=== PATIENT | female | born 1970 | race Caucasian/White ===

== ENCOUNTER 2017-08-24 11:33 | Emergency (ER) | payer BC ==
[2017-08-24 12:09] VITALS: BP 99/67
--- NOTE | 2017-08-24 12:32 | UC ---
Back Pain HPI - HPI Summary HPI Summary: 47 y/o WF presents with left lower back pain after a fall on 08/14/17. She tells me that she was cleaning up after taking down the ryan tree. She has hard wood floors and stepped on a rug - the rug went out from underneath her and she landed on her left hip/buttocks. She had immediate pain, but was able to get up and ambulate. The next day she went to [facility] urgent care and was given Terreton for 3 days. She took this very sparingly and had good relief, but the pain persisted. Last night she had numbness going down her left lateral thigh extending to her lateral knee. She denies fever, chills, SOB, chest pain, abdominal pain, n/v/d/c, dysuria, loss of bowel or bladder control. - History of Current Complaint Chief Complaint: UCBackPain Stated Complaint: BACK INJURY PAIN Hx Obtained From: Patient Hx Last Menstrual Period: Mirena Onset/Duration: Sudden Onset Timing: Lasting Days Severity Initially: Moderate Severity Currently: Moderate Pain Intensity: 8 Pain Scale Used: 0-10 Numeric - Allergies/Home Medications Allergies/Adverse Reactions: Allergies Allergy/AdvReac Type Severity Reaction Status Date / Time Aspirin Allergy Anaphylatic Verified 08/24/17 11:59 Shock Ibuprofen Allergy Anaphylatic Verified 08/24/17 11:59 Shock Shellfish Allergy Allergy Anaphylatic Verified 08/24/17 11:59 Shock PMH/Surg Hx/FS Hx/Imm Hx Previously Healthy: Yes Psychological History: Anxiety, Depression Other History Of: Negative For: HIV, Hepatitis B, Hepatitis C, Anticoagulant Therapy - Surgical History Surgical History: Yes Surgery Procedure, Year, and Place: L Knee partial replacement 2012. L Knee surgery 2011. L Knee surgery 2004. Gall bladder removal 2002 - Family History Known Family History: Positive: None, Cardiac Disease Negative: Hypertension, Diabetes - Social History Occupation: Employed Full-time Lives: With Family Alcohol Use: Occasionally Substance Use Type: None Smoking Status (MU): Never Smoked Tobacco - Immunization History Most Recent Influenza Vaccination: never Most Recent Tetanus Shot: UTD Review of Systems Constitutional: Negative Skin: Negative Respiratory: Negative Cardiovascular: Negative Gastrointestinal: Negative Genitourinary: Negative Musculoskeletal: Other: - Left lower back pain Neurological: Numbness - Left lateral leg All Other Systems Reviewed And Are Negative: Yes Physical Exam Triage Information Reviewed: Yes Appearance: Well-Appearing, No Pain Distress, Well-Nourished Vital Signs: Initial Vital Signs Temp 98.7 F 08/24/17 12:01 Pulse 106 08/24/17 12:01 Resp 20 08/24/17 12:01 BP 99/67 08/24/17 12:01 Pulse Ox 98 08/24/17 12:01 Vital Signs Reviewed: Yes Respiratory: Positive: Chest non-tender, Lungs clear, Normal breath sounds Cardiovascular: Positive: RRR, No Murmur, Pulses Normal Musculoskeletal: Positive: Strength Intact - B/L LEs including dorsiflexion and plantar flexion, ROM Intact - B/L LEs, No Edema, Other: - SLR positive on left. EMMY positive for lower back pain on left. TTP over upper left buttock and piriformis. No ecchymosis or erythema. Neurological: Positive: Alert, Other: - L3-S1 sensations intact B/L LEs. Patella and ankle reflexes intact bilaterally. Psychological: Positive: Age Appropriate Behavior Skin: Negative: rashes Back Pain Course/Dx - Course Course Of Treatment: XR hip: LIMITED SINGLE FRONTAL PROJECTION OF THE LEFT HIP. NO ACUTE OSSEOUS INJURY. Lumbar: 1. FACET OSTEOARTHRITIS WITH MILD DEGENERATIVE DISC DISEASE. 2. NO ACUTE OSSEOUS INJURY. I suspect she has a muscle contusion and/or spasm. She is currently scheduled with physical therapy for this pain and will keep that appointment. 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 Will also try flexeril at bedtime and lidocaine patch as needed. I advised her that if her numbness worsens or persists - she should follow up with her PCP for further eval. - Differential Dx/Diagnosis Differential Diagnosis/HQI/PQRI: Cauda Equina Syndrome, Fracture, Herniated Disc , Strain, Sprain Provider Diagnoses: Low back spasm. Fall Discharge - Discharge Plan Condition: Stable Disposition: HOME Prescriptions: Cyclobenzaprine HCl [Flexeril 5 mg (NF)] 5 mg PO BEDTIME PRN #10 tab PRN Reason: Pain HYDROcodone/ACETAMIN 5-325 MG* [Terreton 5-325 TAB*] 1 tab PO BID PRN #6 tab MDD 2 PRN Reason: Pain Lidocaine 5 % TOPICAL DAILY PRN #14 pad PRN Reason: Pain Patient Education Materials: Muscle Spasm (ED), Lower Back Exercises (ED) Referrals: Denisa Booth MD [Primary Care Provider] - Additional Instructions: If you develop a fever, shortness of breath, chest pain, new or worsening symptoms - please call your PCP or go to the ED. 1) If your symptoms worsen or do not start to improve within 1 week - please schedule a follow up appointment with your PCP.
--- NOTE | 2017-08-24 13:23 | RAD ---
HISTORY: Left hip pain, fall, subacute trauma COMPARISONS: None VIEWS: 1, single frontal view of the left hip FINDINGS: BONE DENSITY: Normal. BONES: There is no displaced fracture. JOINTS: There is no arthropathy. ALIGNMENT: There is no dislocation. SOFT TISSUES: Unremarkable. OTHER FINDINGS: None. IMPRESSION: LIMITED SINGLE FRONTAL PROJECTION OF THE LEFT HIP. NO ACUTE OSSEOUS INJURY. IF SYMPTOMS PERSIST, RECOMMEND REPEAT IMAGING
--- NOTE | 2017-08-24 13:26 | RAD ---
HISTORY: Fall, subacute injury, low back pain COMPARISONS: June 15, 2004 VIEWS: 5 , Frontal, lateral, coned-down lateral sacral, and bilateral oblique views of the lumbar spine. FINDINGS: ALIGNMENT: The alignment is normal. VERTEBRAL BODIES: The vertebral body heights are normal. The interpedicular distances are normal. There is mild anterolateral marginal osteophyte formation. Essentially noted is a small dysraphic defect of S1. JOINTS: There is facet osteoarthritis most pronounced at L4-L5 and L5-S1 INTERVERTEBRAL DISCS: There is mild diffuse loss of intervertebral disc height. SOFT TISSUE: Unremarkable. OTHER: The pelvis is unremarkable. The lung bases are clear. An IUD is noted. IMPRESSION: 1. FACET OSTEOARTHRITIS WITH MILD DEGENERATIVE DISC DISEASE. 2. NO ACUTE OSSEOUS INJURY.
== END 2017-08-24 13:45 | disposition home or self-care (01) ==
LOC: UCEAST 11:33
DX: M62.830 Muscle spasm of back (principal); Z88.6 Allergy status to analgesic agent; Z88.8 Allergy status to other drugs, medicaments and biological substances; Z91.013 Allergy to seafood; W18.31XA Fall on same level due to stepping on an object, initial encounter; Y93.E9 Activity, other interior property and clothing maintenance; Y92.9 Unspecified place or not applicable
CPT/HCPCS: 72110; 99212; G0463

== ENCOUNTER 2018-09-12 19:31 | Observation (INO) | payer BC ==
--- NOTE | 2018-09-12 20:07 | ED ---
Altered Mental Status - HPI Summary HPI Summary: Patient is a 48 y/o F presenting to ED with complaints of AMS. Provider in room at 194. In the room, patient alert and oriented x2. When asked for month, she states September, but she corrects herself a few seconds later. Sx onset at around 1814, states that the patient stubbed her toe, patient's daughter asked to look at it. As she was doing rubbing the toe, the patient asked daughter, "What color you painting my toes?" Later on, states that patient nonsensically said that she needed to get the pictures of the children organized. Patient randomly asked if the doctor was at the house. Patient asked if the doctor had come to the house to spanish moss picker baby clothes. In kitchen later on, states that patient had slight slurring of speech. She notes that she started Lyrica a week or two ago. In the room, states that patient is speaking slowly and that the patient has to try hard not to mis-speak. "I think it (speech) gets a little slurry" per . She is concerned that Sx are a result of medications. notes that while patient was walking down the stairs, she almost fell. No chest pain, no SOB, no DALLAS, no dizziness reported. Patient suddenly got tired, went to sleep. called pharmacy about Sx as he wanted to ask if Sx could be a result of medications. It was advised patient come to ED. While in the car, she states, "I think I'm losing my mind, I thought that we were going to the laser show at [place]. " She then thought that they were going to visit a friend's house. notes that patient has been under a lot of stress recently. Patient medications include Lyrica 50 mg BID, oxycodone 5/325, vitamin D3, cyclobenazpine 5 mg as needed, which she took today short-acting adderall 20 mg at 1300, extended release adderall 30 mg in morning, duloxetine 60 mg daily, synthroid 150 mcg. Hx of chronic back pain. PSHx of knee replacement, cholecystectomy. FMHx of stroke in father. On triage, pain is denied, nothing is noted to aggravate/ alleviate Sx. Home medications and allergies are reviewed. Allergies Allergy/AdvReac Type Severity Reaction Status Date / Time aspirin Allergy Anaphylatic Verified 09/05/18 15:30 Shock ibuprofen Allergy Anaphylatic Verified 09/05/18 15:30 Shock shellfish derived Allergy Anaphylatic Verified 09/05/18 15:30 Shock - History Of Current Complaint Chief Complaint: EDGeneral Stated Complaint: CONFUSED/WEAKNESS Hx Obtained From: Patient Last Known Well Date: 18:15 Onset/Duration: Still Present Timing: Lasting Hours - onset 1615 Severity Initially: Mild Severity Currently: Mild Character: Confusion Aggravating Factor(s): Nothing Alleviating Factor(s): Nothing Associated Signs And Symptoms: Negative: Headache - Allergies/Home Medications Allergies/Adverse Reactions: Allergies Allergy/AdvReac Type Severity Reaction Status Date / Time aspirin Allergy Anaphylatic Verified 09/05/18 15:30 Shock ibuprofen Allergy Anaphylatic Verified 09/05/18 15:30 Shock shellfish derived Allergy Anaphylatic Verified 09/05/18 15:30 Shock PMH/Surg Hx/FS Hx/Imm Hx Previously Healthy: No Endocrine/Hematology History: Reports: Hx Thyroid Disease Denies: Hx Anticoagulant Therapy, Hx Diabetes Cardiovascular History: Denies: Hx Congestive Heart Failure, Hx Deep Vein Thrombosis, Hx Hypercholesterolemia, Hx Hypertension, Hx Myocardial Infarction, Hx Pacemaker/ ICD, Hx Peripheral Vascular Disease Respiratory History: Denies: Hx Asthma, Hx Chronic Obstructive Pulmonary Disease (COPD), Hx Lung Cancer, Hx Pneumonia, Hx Pulmonary Embolism GI History: Denies: Hx Gall Bladder Disease, Hx Gastrointestinal Bleed, Hx Ulcer, Hx Urosepsis History: Denies: Hx Kidney Stones, Hx Renal Disease Musculoskeletal History: Reports: Hx Arthritis, Hx Back Problems - chronic back pain Denies: Hx Rheumatoid Arthritis, Hx Osteoporosis Sensory History: Denies: Hx Cataracts, Hx Contacts or Glasses, Hx Glaucoma, Hx Hearing Aid Opthamlomology History: Denies: Hx Cataracts, Hx Contacts or Glasses, Hx Glaucoma Neurological History: Denies: Hx Dementia, Hx Headaches, Hx Migraine, Hx Seizures, Hx Transient Ischemic Attacks (TIA) Psychiatric History: Reports: Hx Anxiety, Hx Attention Deficit Hyperactivity Disorder, Hx Depression Denies: Hx Eating Disorder, Hx Panic Disorder, Hx Schizophrenia, Hx Bipolar Disorder, Hx of Violent Episodes Against Others - Surgical History Surgery Procedure, Year, and Place: L Knee partial replacement 2012. L Knee surgery 2011. L Knee surgery 2004. Gall bladder removal 2002 Infectious Disease History: No Infectious Disease History: Denies: Hx Clostridium Difficile, Hx Hepatitis, Hx Human Immunodeficiency Virus (HIV), Hx of Known/Suspected MRSA, Hx Shingles, Hx Tuberculosis, Hx Known/ Suspected VRE, Hx Known/Suspected VRSA, History Other Infectious Disease, Traveled Outside the [place] in Last 30 Days - Family History Known Family History: Positive: Cardiac Disease, Other - FMHx of stroke Negative: Hypertension, Diabetes - Social History Occupation: Employed Full-time Lives: With Family Alcohol Use: None Substance Use Type: Reports: None Smoking Status (MU): Never Smoked Tobacco Review of Systems Negative: Fever Eyes: Negative ENT: Negative Negative: Chest Pain Negative: Shortness Of Breath Gastrointestinal: Negative Positive: no symptoms reported Musculoskeletal: Negative Skin: Negative Neurological: Other - NEGATIVE - DIZZINESS; POSITIVE - AMS, CONFUSION Positive: Slurred Speech. Negative: Headache Psychological: Other - confused, but aware she is confused, cooperative, calm All Other Systems Reviewed And Are Negative: Yes Physical Exam - Summary Physical Exam Summary: Appearance: Well-appearing, no pain distress, well-nourished Skin: Warm, color reflects adequate perfusion, dry Head: Normal Head/Face inspection, atraumatic Eyes: Conjunctiva clear, ENT: Normal inspection Neck: Supple, no nodes, no JVD Respiratory: Lungs clear, normal breath sounds, no respiratory distress Cardio: RRR, No murmur, pulses normal, brisk capillary refill Abdomen: Soft, nontender Bowel sounds: Present Musculoskeletal: Strength Intact/ROM intact, no calf tenderness, no edema. Psychological: Normal Neuro: A&O x2, patient gets month wrong, CN II-XII intact, motor function 5/5, sensation intact, cerebellar normal; slurred speech NIH 2, GCS 15 Triage Information Reviewed: Yes Vital Signs On Initial Exam: Initial Vitals Temp Pulse Resp BP Pulse Ox 98.2 F 92 18 102/72 100 09/12/18 19:38 09/12/18 19:38 09/12/18 19:38 09/12/18 19:38 09/12/18 19:38 Vital Signs Reviewed: Yes Diagnostics - Vital Signs Vital Signs Temp Pulse Resp BP Pulse Ox 09/12/18 19:38 98.2 F 92 18 102/72 100 - Laboratory Result Diagrams: 09/12/18 20:57 09/12/18 20:57 Lab Statement: Any lab studies that have been ordered have been reviewed, and results considered in the medical decision making process. - Radiology CXR Radiology Interpretation Completed By: ED Physician Summary of Radiographic Findings: NAD, pending official report - CT brain ct CT Interpretation Completed By: Radiologist Summary of CT Findings: IMPRESSION: No acute intracranial abnormality. This report was reviewed by ED physician. - EKG 2135 Cardiac Rate: NL - rate of 80 BPM EKG Rhythm: Sinus Rhythm - rate of [address] Segment: Non-Specific Ectopy: None EKG Comparison: Other - no priors to compare Summary of EKG Findings: EKG showed sinus rhythm with rate of 80 BPM, nml AVIVCT , nml QTc, nml axis. No ectopy, non-specific ST. No acute changes. No prior EKGs to compare with. National Institutes Of Health - NIH Scale Level of Consciousness: Alert/Keenly Responsive Ask Patient the Month and His/Her Age: [age] Correct/Not Aphasic Ask Pt to Open/Close Eyes and Grease Packer/Release Non-Paretic Hand: Both Correctly Best Gaze (Only Horizontal Eye Movement): Normal Visual Field Testing: No Visual Loss Facial Paresis-Pt to Smile & Close Eyes or Grimace Symmetry: Normal/Symmetrical Motor Function - Right Arm: No Drift-Holds 10 Seconds Motor Function - Left Arm: No Drift-Holds 10 Seconds Motor Function - Right Leg: No Drift-Holds 10 Seconds Motor Function - Left Leg: No Drift-Holds 10 Seconds Limb Ataxia-Must be out of Proportion to Weakness Present: Absent Sensory (Use Pinprick to Test Arms/Legs/Trunk/Face): Normal Best Language (Describe Picture, Name Items): No Aphasia Dysarthria (Read Several Words): Slurs Some Words Extinction and Inattention: No Abnormality Total Score: 2 Re-Evaluation - Re-Evaluation First Eval Re-Evaluation Time: 20:30 Comment: Telestroke was set up in patient's room, patient gives HPI and medications to Dr. Galeano. She states that she only noted that her statements were non-sensical after the fact. Patient describes Sx as intermittent. She still feels on-guard when it comes to answering questions. Hx of depression, anxiety, ADD. In room, vitals are pulse 88, BP 121/77. No prior episodes of such Sx. notes that patient appears tired currently. reports that episode lasted around one hour. Patient had not been asking repeated questions. NIH in room was [address] Galeano. Admission was advised by Dr. Galeano, patient is agreeable. He recommends MRI, clopidogrel 75 mg, ECHO with bubble study. No ASA due to allergy. No TPA. Altered Mental Statu Course/Dx - Course Course Of Treatment: Patient is a 48 y/o F presenting to ED with complaints of AMS. Provider in room at 194. In the room, patient alert and oriented x2. When asked for month, she states September, but she corrects herself a few seconds later. Sx onset at around 1814, states that the patient stubbed her toe , patient's daughter asked to look at it. As she was doing rubbing the toe, the patient asked daughter, "What color you painting my toes?" Later on, states that patient nonsensically said that she needed to get the pictures of the children organized. Patient randomly asked if the doctor was at the house. Patient asked if the doctor had come to the house to spanish moss picker baby clothes. In kitchen later on, states that patient had slight slurring of speech. She notes that she started Lyrica a week or two ago. In the room, states that patient is speaking slowly and that the patient has to try hard not to mis-speak. "I think it (speech) gets a little slurry" per . She is concerned that Sx are a result of medications. notes that while patient was walking down the stairs, she almost fell. No chest pain, no SOB, no DALLAS, no dizziness reported. Patient suddenly got tired, went to sleep. called pharmacy about Sx as he wanted to ask if Sx could be a result of medications. It was advised patient come to ED. While in the car, she states, "I think I'm losing my mind, I thought that we were going to the laser show at [place]. " She then thought that they were going to visit a friend's house. notes that patient has been under a lot of stress recently. Patient medications include Lyrica 50 mg BID, oxycodone 5/325, vitamin D3, cyclobenazpine 5 mg as needed, which she took today short-acting adderall 20 mg at 1300, extended release adderall 30 mg in morning, duloxetine 60 mg daily, synthroid 150 mcg. Hx of chronic back pain. PSHx of knee replacement, cholecystectomy. FMHx of stroke in father. On physical exam, A&O x2, patient gets month wrong, CN II- XII intact, motor function 5/5, sensation intact, cerebellar normal; NIH 2, GCS 15. 2024 - Dr. Galeano was reached, patient's case was discussed, telestroke will be set up. Telestroke was set up in patient's room, patient gives HPI and medications to Dr. Galeano. She states that she only noted that her statements were non-sensical after the fact. Patient describes Sx as intermittent. She still feels on-guard when it comes to answering questions. Hx of depression, anxiety. In room, vitals are pulse 88, BP 121/77. No prior episodes of such Sx. notes that patient appears tired currently. reports that episode lasted around one hour. Patient had not been asking repeated questions. NIH in room was 1. Admission was advised by Dr. Galeano, patient is agreeable. He recommends MRI, clopidogrel 75 mg. 2044 - Dr. Geiger communicated results of Brain CT. Brain CT IMPRESSION: No acute intracranial abnormality. CXR: NAD. EKG showed sinus rhythm with rate of 80 BPM, nml AVIVCT, nml QTc, nml axis. No ectopy, non-specific ST. No acute changes. No prior EKGs to compare with. Pt with acute neurologic event with LKW less than 6 hrs, NIH one on telestroke. No TPA. Diff dx: TIA, toxic encephalopathy due to medication, polypharmacy with medication side effects. 2055 - Patient's case was discussed with Dr. Dougherty, Dr. Dougherty accepts for admission. - Diagnoses Differential Diagnosis/HQI/PQRI: CVA, Medication Reaction, Metabolic Disorder, Seizure, TIA Provider Diagnoses: Altered mental state, Neurological deficit present During the Visit The Following Alert/Code Occurred: Code Spencer - 2013 called - Provider Notifications Discussed Care Of Patient With: Oj Galeano Time Discussed With Above Provider: 20:25 Instructed by Provider To: Other - 2024 - Dr. Galeano was reached, patient's case was discussed, telestroke will be set up. 2044 - Dr. Geiger communicated results of Brain CT. 2055 - Patient's case was discussed with Dr. Dougherty, Dr. Dougherty accepts for admission. - Critical Care Time Critical Care Time: 30-74 min - 30 minutes Discharge - Sign-Out/Discharge Documenting (check all that apply): Patient Departure - admit All imaging exams completed and their final reports reviewed: Yes - Discharge Plan Condition: Stable Disposition: ADMITTED TO [facility] - Billing Disposition and Condition Condition: STABLE Disposition: Admitted to [facility] - Attestation Statements Document Initiated by Kassiibe: Yes Documenting Scribe: JAMAR WALLS Provider For Whom Toñoe is Documenting (Include Credential): ELIZABETH ELIZALDE MD Scribe Attestation: JAMAR Archer , scribed for ELIZABETH ELIZALDE MD on 09/13/18 at 2228. Scribe Documentation Reviewed: Yes Provider Attestation: The documentation as recorded by the JAMAR morales accurately reflects the service I personally performed and the decisions made by me, ELIZABETH ELIZALDE MD Status of Scribe Document: Viewed
[2018-09-12] MEDS ORDERED: NS 0.9% 1000 ML* 1,000 ML IV ONE (20:14)
[2018-09-12 21:07] LABS: ABS Basophils 0.1 10^3/ul (0-0.2); ABS Eosinophils 0.2 10^3/ul (0-0.6); ABS Lymphocytes 2.6 10^3/ul (1.0-4.8); ABS Monocytes 0.5 10^3/ul (0-0.8); ABS Neutrophils 2.2 10^3/ul (1.5-7.7); ABS Nucleated RBC 0 10^3/ul; Eosinophil % 3.1 %; Hematocrit 38 % (35-47); Hemoglobin 12.9 g/dl (12.0-16.0); Lymphocyte % 46.5 %; Mean Corpuscular HGB Conc 34 g/dl (31-36); Mean Corpuscular Hemoglobin 31 pg (27-31); Mean Corpuscular Volume 92 fL (80-97); Mean Platelet Volume 8.6 fL (7.4-10.4); Nucleated Red Blood Cells % 0.1; Platelet Count 250 10^3/ul (150-450); Red Blood Count 4.14 10^6/ul (4.00-5.40); Red Cell Distribution Width 13 % (10.5-15); White Blood Count 5.6 10^3/ul (3.5-10.8)
[2018-09-12 21:19] LABS: Activated Partial Thrombo Time 27.9 seconds (26.0-36.3)
[2018-09-12] MEDS ORDERED: Cyclobenzaprine TAB* 10 MG PO PRN ×2 (21:23)
[2018-09-12] MEDS ORDERED: Lidocaine PATCH 5%* 1 PATCH TRANSDERM PRN (21:23)
[2018-09-12] MEDS ORDERED: Acetaminophen TAB* 325 MG PO PRN (21:28)
[2018-09-12] MEDS ORDERED: Clopidogrel TAB* 75 MG PO ONE (21:30)
[2018-09-12 21:31] LABS: HCG Pregnancy < 0.60 mIU/mL
--- NOTE | 2018-09-12 21:32 | ADMNOTE ---
Subjective Date of Service: 09/12/18 - History and Physical Interval History: History and Physical. Chief Complaint: confusion History of presenting illness: This is a 48 year old Female with history of chronic low back pain, depression, anxiety, hypothyroidism, who presents to the emergency room because of confusion. This started at about 6:15 PM. She was making dinner, then she stubbed her toe, and shortly thereafter she became very confused. Her witnessed this. Her told her we will take you to the hospital, and they started driving. During the drive she though she was going a family member's house. Few minutes later, she thought they were going to [place]. She takes numerous psychiatric medications, as well as pain medications. One change in his medications list is start of Lyrica about a week ago. No prior episodes, no slurring of speech. Did not have any focal weakness or numbness. In the Emergency: Code [place] (stroke) was called. CT head was done, was negative. Teleneurologist was called. Past medical history: Chronic low back pain Depression Anxiety Unspecified Hypothyroidism Past surgeries: Knee replacement Cholecystectomy Social History: Lives at home, with her . Does not smoke, no alcohol use. She is a teacher Family history: Mother: cancer Father: heart condition. Review of Systems - Measurements Intake and Output: Intake and Output Last 24 Hours 09/10/18 09/11/18 09/12/18 09/13/18 06:59 06:59 06:59 06:59 Weight 185 lb - Review of Systems Constitutional Symptoms: Negative: Weight Loss, Fatigue, Fever, Unexplained Falls Dermatology: Negative: Rash, Skin Lesions HEENT: Negative: Change in Hearing, Vertigo Eyes: Negative: Change in Vision, Eye Pain, Glaucoma Thyroid: Positive: Primary Hypothyroidism Negative: Cold Intolerance, Frequent Defecation, Palpitations Pulmonary: Negative: Cough, Sputum, Respiratory Distress, Shortness of Breath Cardiology: Negative: Chest Pain, Palpitations, Syncope Gastroenterology: Negative: Abdominal Pain, Nausea, Vomiting, Constipation, Diarrhea Genital - Urinary: Negative: Dysuria, Hematuria Genitourinay - Female: Negative: Vaginal Discharge Musculoskeletal: Positive: Low Back Pain Negative: Arthritis Neurology: Positive: Other - See HPI Negative: Headache, Dizziness Psychiatry: Positive: Depression, Anxiety Objective Active Medications: Acetaminophen (Tylenol Tab*) 650 mg PO Q6H PRN PRN Reason: FEVER/PAIN Amphetamine/Dextroamphetamine (Adderal Xr (Nf)) 30 mg PO DAILY [facility] Amphetamine/Dextroamphetamine (Adderal Xr (Nf)) 20 mg PO DAILY [facility] Cholecalciferol (Vitamin D3 Cap/Tab (Nf)) cap PO DAILY [facility] Clopidogrel Bisulfate (Plavix Tab*) 75 mg PO ED ONCE ONE Stop: 09/12/18 21:31 Cyclobenzaprine HCl (Cyclobenzaprine (Nf)) 5 mg PO DAILY PRN PRN Reason: SPASMS Cyclobenzaprine HCl (Flexeril Tab*) 10 mg PO TID PRN PRN Reason: SPASMS Duloxetine HCl (Cymbalta Cap*) 60 mg PO DAILY [facility] Enoxaparin Sodium (Lovenox(*)) 40 mg SUBCUT Q24H [facility] Haloperidol (Haldol Tab*) 1 mg PO BEDTIME [facility] Lidocaine (Lidoderm 5% Patch*) patch TRANSDERM DAILY PRN PRN Reason: PAIN Non-Formulary Medication (Levoxyl ) 150 meq PO DAILY [facility] Non-Formulary Medication (Topiramate [Topiramate Er 100 Mg Cap]) 100 mg PO DAILY [facility] Non-Formulary Medication (Topiramate [Topiramate Er 50 Mg Cap]) 50 mg PO DAILY [facility] Quetiapine Fumarate (Seroquel Xr Tab*) 50 mg PO BEDTIME [facility] Vital Signs - 8 hr 09/12/18 19:38 Temperature 98.2 F Pulse Rate 92 Respiratory 18 Rate Blood Pressure 102/72 (mmHg) O2 Sat by Pulse 100 Oximetry Oxygen Devices in Use Now: None Appearance: Well developed well nourished female lying in bed, not in distress Eyes: PERRLA, - - No nystagmus. Ears/Nose/Mouth/Throat: Mucous Membranes Moist, - - no nystagmus, no tongue bite Neck: Trachea Midline, No Thyroid Enlargement, Masses Respiratory: Symmetrical Chest Expansion and Respiratory Effort, Clear to Auscultation Cardiovascular: NL Sounds; No Murmurs; No JVD, RRR Abdominal: NL Sounds; No Tenderness; No Distention, No Hepatosplenomegaly Extremities: No Edema, No Clubbing, Cyanosis Skin: No Rash or Ulcers Neurological: Alert and Oriented x 3, - - tongue midline, speech clear/coherent , no nystagmus, symetric smile, motor 5/5 all 4 extremities, no dysmetria, no dysdiadokinesia Result Diagrams: 09/12/18 20:57 09/12/18 20:57 Diagnostic Imaging: EXAM: CT Head Without Contrast EXAM DATE/TIME: 09/12/2018 8:22 PM CLINICAL HISTORY: 48 years old, female; Signs and symptoms; Altered mental status/memory loss; Additional info: Neurological changes/code romero TECHNIQUE: Axial computed tomography images of the head/brain without contrast. All CT scans at this facility use at least one of these dose optimization techniques: automated exposure control; mA and/or kV adjustment per patient size (includes targeted exams where dose is matched to clinical indication); or iterative reconstruction. COMPARISON: No relevant prior studies available. FINDINGS: Brain: Normal. No hemorrhage. No significant white matter disease. No edema. Ventricles: Normal. No ventriculomegaly. Bones/joints: Normal. No acute fracture. Sinuses: Normal as visualized. No acute sinusitis. Mastoid air cells: Normal as visualized. No mastoid effusion. Soft tissues: Normal. IMPRESSION: No acute intracranial abnormality. MR Head Without Contrast EXAM DATE/TIME: 09/12/2018 9:51 PM CLINICAL HISTORY: 48 years old, female; Signs and symptoms; Altered mental status/memory loss; Confusion or disorientation; Patient HX: Around 1830 patient appeared confused, repeating questions and not realizing what she was talking about with her ; Additional info: TIA rule out TECHNIQUE: MR of the head without contrast. COMPARISON: BRAIN WO CT BRAIN WO 09/12/2018 8:21 PM FINDINGS: Brain: Normal. No hemorrhage. No significant white matter disease. No edema. No acute infarct. Ventricles: Normal. No ventriculomegaly. Bones/joints: Unremarkable. Soft tissues: Normal. Sinuses: Normal as visualized. No acute sinusitis. Mastoid air cells: Normal as visualized. No mastoid effusion. Orbits: Unremarkable. IMPRESSION: No acute findings. EKG Data: EKG: sinus rhythm Assess/Plan/Problems-Billing Assessment: - Patient Problems (1) Confusion Current Visit: Yes Status: Acute Code(s): R41.0 - DISORIENTATION, UNSPECIFIED SNOMED Code(s): 355980131 Comment: Likely polypharmacy. Unlikely stroke or TIA. Allergic to aspirin, one dose plavix given. CT head negative, MRI is negative Ordered ECHO, carotid LDL was 98 recently, neuro consult Likely polypharmacy: hold lyrica, will monitor. (2) Hypothyroid Current Visit: Yes Status: Acute Code(s): E03.9 - HYPOTHYROIDISM, UNSPECIFIED SNOMED Code(s): 08920246 Comment: continue levoxyl. (3) Psychiatric illness Current Visit: Yes Status: Acute Code(s): F99 - MENTAL DISORDER, NOT OTHERWISE SPECIFIED SNOMED Code(s): 15601202 Comment: history of depression/anxiety: continue home medicaitons, holding home dose lyrica and klonopin for now due to confusion. Status and Disposition: Plan of care discussed with patient and at bedside Additional management as the hospital course progresses.
[2018-09-12 21:41] LABS: ALT 14 U/L (7-52); AST 15 U/L (13-39); Albumin/Globulin Ratio 1.5 (1-3); Alkaline Phosphatase 59 U/L (34-104); Anion Gap 4 mmol/L (2-11); BUN/Creatinine Ratio 18.6 (8-20); Blood Urea Nitrogen 18 mg/dL (6-24); CO2 Carbon Dioxide 27 mmol/L (22-32); Calcium 9.1 mg/dL (8.6-10.3); Chloride 109 mmol/L (101-111); Cholesterol 167 mg/dL; EGFR African American 74.8 (>60); EGFR Non-African American 61.8 (>60); Globulin 2.6 g/dL (2-4); Glucose 96 mg/dL (70-100); LDL Cholesterol 98 mg/dL; Potassium 3.8 mmol/L (3.5-5.0); Sodium 140 mmol/L (135-145); Total Protein 6.6 g/dL (6.4-8.9); Triglycerides 113 mg/dL
[2018-09-12] MEDS ORDERED: Enoxaparin(*) 40 MG/0.4 ML SYR SUBCUT SCH (22:00)
[2018-09-12 22:16] LABS: Acetaminophen < 15 mcg/mL; Alcohol < 10 mg/dL (<10); Salicylate < 2.50 mg/dL (<30)
[2018-09-13] MEDS ORDERED: Levothyroxine TAB* 150 MCG TAB PO SCH (06:00)
[2018-09-13 08:20] LABS: Barbiturates Urine Screen None Detected (None Detect); Benzodiazepine Urine Screen None Detected (None Detect); Urine Cannabinoids Screen None Detected (None Detect)
[2018-09-13] MEDS ORDERED: Cholecalciferol TAB* 1000 UNITS PO SCH (09:00)
[2018-09-13] MEDS ORDERED: DULoxetine DR CAP* 60 MG CAP.DR PO SCH (09:00)
[2018-09-13] MEDS ORDERED: CMCS: Amphetamine/Dextroamph ER(NF) 10 MG CAP.ER PO SCH ×2 (09:00→13:00)
[2018-09-13] MEDS ORDERED: TOPIRAMATE 100 MG PO SCH (09:00)
[2018-09-13] MEDS ORDERED: TOPIRAMATE 50 MG PO SCH (09:00)
[2018-09-13] MEDS: Lactulose* 15 ML UDC PO SCH ×2 (09:23→13:38)
[2018-09-13 12:22] LABS: TSH (Thyroid Stimulating Horm) 0.17 mcIU/mL (0.34-5.60)
[2018-09-13 12:24] LABS: Free T4 0.85 ng/dL (0.61-1.12)
--- NOTE | 2018-09-13 14:07 | CONS ---
NEUROLOGY CONSULTATION NOTE: DATE OF CONSULT: 09/13/18 CONSULTING PROVIDER: Dr. Caitlyn Dougherty. REASON FOR CONSULT: Episode of confusion. CHIEF COMPLAINT: Transient episodes of disorientation and confusion. HISTORY OF PRESENT ILLNESS: Mrs. Zahra Pinto is a pleasant 48-year-old right - handed female who has history of depression, anxiety, attention deficit disorder, bipolar disorder, chronic low back pain, hypothyroidism, who presented to [facility] yesterday due to increased confusion. The symptoms completely resolved when she arrived to the emergency room. The history was mostly obtained by her who is at bedside. Apparently, the patient was in normal state of health throughout the day yesterday. 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 She came back from work feeling tired. She asked her daughter if she had any bruising around her toe as she stubbed her toe on a nearby furniture earlier yesterday. While her daughter was looking at her toe, she asked her if she was going to paint her toenails. This occurred at approximately 6:15 p.m. Her daughter stated that no, she was just checking her toes and did not know that she was supposed to paint her toes. The patient then got up and was telling her that she needs to organize the pictures that she left in the kitchen table. However, there were no pictures in the kitchen table that required any organization. She then felt exhausted and said she was going to bed. Approximately 1 hour later at 7 p.m., the patient's spouse went to check up on her and she appeared confused. She was slurring her words. He decided that they should go to the hospital. In route to the hospital, the patient asked her if she was losing her mind. She questions if he contacted the hospital and asked them if it was a good time for them to go in. He explained that this is not typically done when going to the ER and it is not necessary. When she arrived to the ER, the patient was felt to have mild slurred speech. Code romero was activated. There was no neurological deficits other than mild slurred speech. She had a CT of the head that was unremarkable. Then, she had an MRI of the brain without contrast that did not show any acute intracranial abnormality. She had a carotid Doppler that showed no definite carotid artery disease. She is currently undergoing a transthoracic echo. The patient had the following laboratory values: WBC 5.6, hemoglobin of 12, hematocrit of 38, platelet count of 250. INR of 1. Sodium 140. Potassium of 3.8, chloride of 109, BUN of 18, creatinine of 0.97. Lactic acid 0.4. Ammonia of 66. She had a urinalysis that was positive for urine amphetamine. The patient is taking Adderall. The patient stated that she took 30 mg of Flexeril in the morning and she felt some stiffness. She does not take Haldol. She does not take Topamax for the past 2 weeks. She stopped taking Topamax because she did not feel well and was not losing weight with the medication. She was recently started on Lyrica less than 1 week ago and she takes 50 mg twice daily for back pain. The patient takes Klonopin 0.5 mg as needed and has not taken any for the last 2 weeks. She takes Adderall 30 mg in the morning and 20 mg at night. She rarely takes Flexeril, only uses it maybe once every 2 weeks. PAST MEDICAL HISTORY: Chronic low back pain, low cholesterol level, hypothyroidism, cholecystectomy, knee replacement, bipolar disorder, major depressive disorder, anxiety. The patient sees Dr. Bruno for psychiatric care. MEDICATIONS: 1. Duloxetine 60 mg p.o. daily. 2. Adderall 30 mg in the morning and 20 mg at night. 3. Vitamin D supplement. She is not taking Topamax or Haldol, please remove that off her home medication list. 4. Cyclobenzaprine 10 mg p.o. t.i.d. as needed. 5. Clonazepam 0.5 mg p.o. t.i.d. p.r.n. Last dose was 2 weeks ago. 6. Quetiapine 50 mg p.o. at bedtime. 7. Acetaminophen 1000 mg p.o. every 6 hours as needed. 8. Pregabalin 50 mg p.o. b.i.d. that was just recently started 1 week ago. ALLERGIES: ASPIRIN, SHELLFISH, IBUPROFEN. FAMILY HISTORY: There is no family history of stroke or seizures. SOCIAL HISTORY: The patient is . She has 1 child. She is a schoolteacher. She denied any tobacco or alcohol use. She is happily . REVIEW OF SYSTEMS: A 14-point review of systems was obtained and otherwise negative, except for what was mentioned in the HPI. PHYSICAL EXAMINATION: Vitals: Temperature of 97.9, pulse of 68, respiratory rate of 14, oxygen saturation of 100, and blood pressure of 120/72. General: Well- nourished, well-developed female in no acute distress. She is overweight. Head: Atraumatic and normocephalic without any obvious abnormalities. Eyes: Conjunctivae/corneas are clear. Neck is supple and symmetrical with no carotid bruits. No lymphadenopathy. Lungs are clear to auscultation bilaterally. Cardiovascular: Regular rate and rhythm, with normal S1, S2. Extremities: Normal range of motion with no cyanosis. Skin: No skin lesions or laceration. Psych: Affect is broad and normal mood, easy to establish rapport. Initially, the patient was agitated and not impressed with the examiner given that I informed her that most of these symptoms that she is having are likely side effects to the medication she is taking; however, later on in the history the patient was open and very appreciative of the recommendation and was interested in further care and to further wean off some of the medications. Neurological Examination: Mental Status: Awake, alert, oriented to person; place; time, general circumstance. Speech and language including expression, naming, and repetition were assessed and found to be normal. Cranial Nerves: Normal confrontation testing bilaterally. Pupils are mid range and reactive to light. Extraocular muscles are intact. No ptosis. Sensation is intact in the forehead, cheeks, and jaw region bilaterally. No facial droop. Normal facial symmetry with smiling. She is able to hear throughout the history process. Symmetrical palatal elevation. She has normal strength against shoulder resistance. Tongue is symmetrical and midline with no atrophy or fasciculation. Motor: No abnormal movement or pronator drift. She has got 5/5 strength in the proximal and distal upper and lower extremities bilaterally. Reflexes: 2+ throughout with 1+ in the ankles bilaterally. Sensation is intact to light touch throughout. She has normal vibration at the great toe measuring 15 seconds on the right and 16 seconds on the left. Proprioception is intact at the great toes. Coordination: Normal finger-to- nose and rapid alternating movement. Gait and station narrow based and normal stance and gait, no ataxia. No Romberg sign. 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 1. Suspect acute toxic encephalopathy that has resolved. She may have consumed a large dose of Flexeril. She used to take the same dose before starting Lyrica. Therefore, I think the combination of treatment may have caused some toxic related encephalopathy. She just started Lyrica 1 week ago. We do need to exclude any possible causes such as complex partial seizures. I do not suspect she had transient ischemic attack or stroke given that she has no risk factor for cerebrovascular disease, she had no lateralizing symptoms ( dysarthria is a non-specific finding that can be present as a side effect of sedative medications), and brain MRI is normal. RECOMMENDATION: She should not take more than 10 mg of Flexeril, in time. I prefer she decreases the dose to 5 mg three times daily as needed. She should reduce the Lyrica dose to 50 mg nightly. We are pending TSH, vitamin B12, and EEG. Otherwise, the patient will probably be cleared for discharge from the neurology standpoint. She will not need any further services at this point. I recommend she follows up with admission specialist as well as Dr. Bruno from Psychiatry for further recommendations. I spent a total of 70 minutes of which more than 50% was spent obtaining history, examining the patient, education and counseling, and discussing the treatment plan as mentioned above. She can be discharged from the neurology standpoint after the EEG results. [id number]/[facility] #: [id number] [facility] STATE HOSPITALOrestes
--- NOTE | 2018-09-13 15:30 | ECHO ---
Patient: HOSSEIN SHAIKH [facility] Rec#: [id number] : 1970 Date: 09/13/2018 Age: 48y Height: 168 cm / 66.1 in Weight: 83.9 kg / 184.9 lbs Sex: F BSA: 1.94 Room#: [facility] Admit Date#: 09/12/2018 Type: Inpatient Referring: Caitlyn Dougherty Reading: Justin Perez MD [place] Operator: Christina Sanchez RDCS CC: Denisa Castle MD Transthoracic Echocardiogram Indication: TIA BP: 115/68 HR: 81 Rhythm: NSR Findings History: Thyroid disease. Technical Comments: The study quality is fair. Completed at 1225. Left Ventricle: The left ventricular chamber size is normal. There is no left ventricular hypertrophy. Global left ventricular wall motion and contractility are within normal limits. There is normal left ventricular systolic function. The estimated ejection fraction is 60-65%. Normal left ventricular diastolic filling is observed. Left Atrium: The left atrial chamber size is normal. Right Ventricle: Moderator Band present. The right ventricular cavity size is normal. The right ventricular global systolic function is normal. Right Atrium: The right atrial cavity size is normal. Aortic Valve: The aortic valve is trileaflet. There is no evidence of aortic valve thickening. There is no evidence of aortic regurgitation. There is no evidence of aortic stenosis. Mitral Valve: The mitral valve leaflets are mildly thickened. There is mild mitral regurgitation. There is no evidence of mitral stenosis. Tricuspid Valve: The tricuspid valve leaflets are normal. There is a physiologic tricuspid regurgitation. Unable to estimate the right ventricular systolic pressure. There is no tricuspid stenosis. Pulmonic Valve: The pulmonic valve appears normal. There is a trace pulmonic regurgitation. There is no pulmonic stenosis. Pericardium: There is no significant pericardial effusion. A pericardial fat pad is visualized. Aorta: There is no dilatation of the ascending aorta. There is no dilatation of the aortic arch. The aortic root is normal in size. Pulmonary Artery: The main pulmonary artery is not well visualized. Venous: The inferior vena cava appears normal in size. There is a greater than 50% respiratory change in the inferior vena cava dimension. Summary: There was not any prior study for comparison. Conclusions There is normal left ventricular systolic function. The estimated ejection fraction is 60-65%. There is mild mitral regurgitation. There is a physiologic tricuspid regurgitation. Measurements Name Value Normal Range RVIDd (AP) 2D 3.1 cm (0.9 - 2.6) RVDdMajor (2D) 4 cm (2.2 - 4.4) RAd ISD 4CH 4.8 cm (3.4 - 4.9) RA (A4C)W 4 cm (2.9 - 4.6) IVSd (2D) 1 cm (0.6 - 1) LVPWd (2D) 1 cm (0.6 - 1) LVIDd (2D) 4.5 cm (3.6 - 5.4) LVIDs (2D) 3.2 cm - LV FS (2D) 30 % (25 - 45) Aortic Annulus 1.8 cm (1.4 - 2.6) Ao root diameter (2D) 3 cm (2.1 - 3.5) Ascending Ao 2.9 cm (2.1 - 3.4) Aortic arch 2.3 cm (1.8 - 3.4) LA dimension (AP) 2D 3.6 cm (2.3 - 3.8) LAd ISD 4CH 4.7 cm (2.9 - 5.3) LA ISD 4CH W 4 cm (2.5 - 4.5) Name Value Normal Range LA ESV BP (A/L) index 25 ml/m2 - Name Value Normal Range MV E-wave Vmax 1 m/sec - MV deceleration time 253 msec - MV A-wave Vmax 0.8 m/sec - MV E:A ratio 1.25 ratio - LV septal e' Vmax 0.07 m/sec - LV lateral e' Vmax 0.09 m/sec - LV E:e' septal ratio 14.3 ratio - LV E:e' lateral ratio 11.1 ratio - Name Value Normal Range AV Vmax 1.3 m/sec - AV VTI 24 cm - AV peak gradient 7 mmHg - AV mean gradient 3 mmHg - LVOT Vmax 1.1 m/sec - LVOT VTI 21 cm - LVOT peak gradient 4 mmHg - LVOT mean gradient 2 mmHg - PATI Vmax 1.3 m/sec - Name Value Normal Range IVC diameter 1.6 cm - Name Value Normal Range PV Vmax 0.9 m/sec - PV peak gradient 3 mmHg -
[2018-09-13 16:18] VITALS: BP 101/69
[2018-09-13] MEDS ORDERED: Haloperidol TAB* 1 MG PO SCH (21:00)
[2018-09-13] MEDS ORDERED: QUEtiapine XR TAB* 50 MG PO SCH (21:00)
--- NOTE | 2018-09-13 21:27 | DS ---
CC: Dr. Denisa Booth * DISCHARGE SUMMARY: DATE OF ADMISSION: 09/12/18 DATE OF DISCHARGE: 09/13/18 ATTENDING PHYSICIAN ON ADMISSION: Dr. Dougherty. MY ATTENDING FOR TODAY: Dr. Tay.* (DICTATED BY DUNIA TANG NP) PRIMARY CARE PROVIDER: Dr. Denisa Booth. HOSPITAL COURSE: In short, please refer to admission H and P dated 09/12/18; however, the patient had been brought to the hospital by her family with complaints of some bizarre behavior and confusion. The patient states that she did not have a recollection of some of the issues that led to her confusion. She did state that she started taking new medication, Lyrica, for chronic back pain and then also took 30 mg of Flexeril. Shortly thereafter, the patient began to become confused. The patient was ruled out for CVA given her acutely confused state. Her NIH score did not meet criteria for acute cerebrovascular accident or infarct. The patient had a negative CT of the head. Carotid Doppler also negative and echocardiogram of the heart also negative. Neurology did see the patient and after evaluating her diagnostic data, determined that it was likely polypharmacy that caused her acutely confused state. The patient was cleared by the neurologist on 09/13/18. Dr. Conner of Neurology did recommend the patient evaluate her medications with her psychiatrist as she is on multiple medications that can have interactions in terms of her chronic pain and history of depression and psychiatric illness. It would make more sense for the patient to evaluate her need for Adderall, Lyrica and Klonopin in combination with Topamax and Haldol. Again, ultimately, the patient's symptoms resolved. Her workup was negative and she was cleared by Neurology for discharge to home. REVIEW OF SYSTEMS: On the day of discharge, the patient denies any fever, fatigue, or chills. No headache. No chest pain, no shortness of breath. No nausea, no vomiting and no further constitutional complaints. PHYSICAL EXAMINATION: This is a well-appearing woman, in no acute distress. Vital Signs: Today are blood pressure 128/72, heart rate 68, respiratory rate 14, O2 saturation 100% on room air, temperature of 97.9. HEENT: The patient is atraumatic, normocephalic. PERRLA with nonicteric sclerae. Oral mucosa is moist. Tongue is midline. Neck: Supple, nontender. No JVD. No carotid bruit auscultated. Cardiovascular: S1, S2 present. No murmurs, gallops, or rubs noted. Rate and rhythm are regular. On telemetry, EKG with no changes. Lungs are clear bilaterally to auscultation with no wheezing, rhonchi, or rales. Abdomen is soft, nontender, nondistended. Positive bowel sounds in all 4 quadrants. was deferred. Musculoskeletal: There is no clubbing, no cyanosis, no edema. She has +2 distal pulses palpable. Gross motor, sensation are intact. She has a steady gait. Neurologic: No acute focal deficits noted. Psychiatric: She is cooperative and appropriate. DIAGNOSTIC STUDIES/LAB DATA: WBCs 5.6, RBCs 4.14, hemoglobin 12.9, hematocrit 38, platelets 250. Sodium 140, potassium 3.8, chloride 109, CO2 27, BUN 18, creatinine 0.97, glucose 96, calcium 9.1, lactic acid 0.4. TSH 0.17. Beta quant was negative at 0.60 and free T4 was 0.85. Toxicology screen presumptive positive for amphetamines. Further screen was negative. Imaging: CT of the brain dated 09/12/18; conclusions and impression: No acute intracranial abnormality. Chest x-ray dated 09/12/18 shows no active cardiopulmonary disease. MRI of the brain dated 09/12/18 shows no acute findings. Carotid Doppler ultrasound bilaterally dated 09/13/18 shows no definite evidence of carotid artery stenosis is noted and essentially normal findings. Transthoracic echocardiogram shows normal left ventricular systolic function, estimated EF of 60% to 65%. There is mild mitral regurgitation and there is a physiologic tricuspid regurgitation. DISCHARGE DIAGNOSES: 1. Acute confusion secondary to polypharmacy. 2. History of chronic pain. 3. History of psychiatric and behavioral disorder. MEDICATIONS FOR DISCHARGE: Include: 1. Adderall 20 mg in the morning, 30 mg in the evening. 2. Duloxetine 60 mg p.o. daily. 3. Flexeril 10 mg p.o. 3 times a day as needed. 4. Vitamin D3, 5000 units daily. 5. Extra Strength Tylenol 1000 mg p.o. q.6 hours as needed. 6. Lidocaine topical 5% daily p.r.n. 7. Levoxyl 150 mcg p.o. daily. 8. EpiPen as needed. 9. Klonopin 0.5 mg t.i.d. p.r.n. 10. Seroquel 50 mg at bedtime. Recommended to start medications: Lyrica 50 mg p.o. b.i.d. and also the patient should discuss her Adderall with her psychiatrist in conjunction with her Klonopin. DISPOSITION: Discharged to home in stable condition in the care of her . ACTIVITY: As tolerated. DIET: Unrestricted, as tolerated. FOLLOWUPS: The patient was instructed to follow up with her primary care provider on an as needed basis. DISCHARGE DISPOSITION: To home. TIME SPENT: Thirty-five minutes interfacing with the patient developing discharge plan and care. DUNIA TANG, LAUREEN [id number]/CPS #: [id number] JAKE
== END 2018-09-13 16:22 | disposition home or self-care (01) ==
LOC: ED 19:31 → MEDTELE 21:28
PROVIDERS: ADMIT Internal Medicine; ATTEND Hospitalist
DX: G89.29 Other chronic pain (principal); R41.0 Disorientation, unspecified; E03.9 Hypothyroidism, unspecified; F99 Mental disorder, not otherwise specified; Z88.6 Allergy status to analgesic agent; Z96.651 Presence of right artificial knee joint; F32.9 Major depressive disorder, single episode, unspecified
CPT/HCPCS: 36415; 70450; 70551; 71045; 80053; 80061; 80307; 80320; 80329; 82140; 82607; 83605; 84439; 84443; 84484; 84702; 85025; 85610; 85730; 86850; 86900; 86901; 93005; 93306; 93880; 95816; 96372; 99284; A9270-GY; G0378; G0480; J1650